=== PATIENT | male | born 1995 | race Caucasian/White ===

== ENCOUNTER 2018-02-27 23:27 | Emergency (ER) | payer OTHER ==
[2018-02-27] MEDS ORDERED: FAMOTIDINE 20 MG TABLET PO ONE (23:57)
[2018-02-27] MEDS ORDERED: DIPHENHYDRAMINE HCL 50 MG CAPSULE PO ONE (23:57)
--- NOTE | 2018-02-27 23:58 | ER Document Report ---
ED Allergic Reaction - General Mode of Arrival: Ambulatory Information source: Patient TRAVEL OUTSIDE OF THE [place] IN LAST 30 DAYS: No - General Chief Complaint: Allergic Reaction Stated Complaint: ALLERGIC REACTION Time Seen by Provider: 02/27/18 23:52 Notes: Patient is a 22 year old male presenting to the emergency department complaining of an allergic reaction. Patient states he was cutting the hair on his head, chest and back with new clippers when he became itchy on his neck, upper back and chest. He states he was not initially concerned due to normally being itchy after a haircut but states the itchiness became "unbearable". He states he also became red and developed hives on his back, chest, and neck. He states he is no longer as itchy as before but now describes his skin as burning. Patient denies any use of lotions or oils. (ELIESER GOODE) - Related Data Allergies/Adverse Reactions: No Known Allergies Allergy (Unverified 02/27/18 23:30) Past Medical History - General Information source: Patient - Social History Smoking Status: Never Smoker Cigarette use (# per day): No Chew tobacco use (# tins/day): No Smoking Education Provided: No Frequency of alcohol use: None Family History: Reviewed & Not Pertinent Review of Systems - Review of Systems Constitutional: No symptoms reported EENT: No symptoms reported Cardiovascular: No symptoms reported Respiratory: No symptoms reported Gastrointestinal: No symptoms reported Genitourinary: No symptoms reported Male Genitourinary: No symptoms reported Musculoskeletal: No symptoms reported Skin: See HPI Hematologic/Lymphatic: No symptoms reported Neurological/Psychological: No symptoms reported -: Yes All other systems reviewed and negative Physical Exam - Vital signs Vitals: Temp Pulse Resp BP Pulse Ox 98.0 F 74 16 137/77 H 98 02/27/18 23:33 02/27/18 23:33 02/27/18 23:33 02/27/18 23:33 02/27/18 23:33 - Notes Notes: GENERAL: Alert, interacts well. No acute distress. HEAD: Normocephalic, atraumatic. EYES: Pupils equal, round, and reactive to light. Extraocular movements intact. ENT: Oral mucosa moist, tongue midline. NECK: Full range of motion. Supple. Trachea midline. LUNGS: No respiratory distress. HEART: Regular rate and rhythm. No murmurs, gallops, or rubs. EXTREMITIES: Moves all 4 extremities spontaneously. NEUROLOGICAL: Alert and oriented x3. Normal speech. PSYCH: Normal affect, normal mood. SKIN: Warm, dry, normal turgor. Diffuse erythema across chest, posterior neck and upper back. Dermatographism present after running fingernail across the back. (ELIESER GOODE) Course - Re-evaluation Re-evalutation: 02/28/18 00:53 The dermatographic is some lines that were produced on the patient's back when I héctor my fingernail across the skin, have faded and are no longer visible. Patient states that the itching is much improved. There is still some itching but it is considerably better. (SHAQ SINGH) - Vital Signs Vital signs: Temp Pulse Resp BP Pulse Ox 98.0 F 68 16 130/76 H 99 02/28/18 01:14 02/28/18 01:14 02/28/18 01:14 02/28/18 01:14 02/28/18 01:14 Discharge - Discharge Clinical Impression: Dermatographic urticaria Condition: Stable Disposition: HOME, SELF-CARE Additional Instructions: Acute Allergic Reaction Your symptoms are due to an allergic reaction. Allergy can cause hives, swelling of the hands, feet, and face, hoarseness, and difficulty swallowing or breathing. It may be due to exposure to medication, animal dander, foods, infection, or insect bites. Medication is a common cause, even when prior use of this same medication caused no problems. Acute treatment may include adrenalin and antihistamines. Usually, the specific allergic agent can't be identified unless repeated episodes occur. Home treatment includes the following: (1) Stop any suspicious medications. This will be discussed with you. (2) Oral antihistamines for the next four to five days. Example, diphenhydramine (Benadryl) every four hours. (3) You may also use cimetidine (Tagamet), ranitidine (Zantac), or famotidine (Pepcid) every four hours if diphenhydramine is not controlling itching and hives. (4) Avoid aspirin until the hives completely disappear. (5) Avoid hot baths or showers until the hives are completely gone. Call the doctor if faintness, difficulty swallowing, tightness in the chest, or wheezing occurs. Take Tagamet, Zantac, or Pepcid every 4 hours for the next few days. Take Benadryl every 4 hours if the other medications are not controlling her symptoms. Try to avoid anything that would scratch or irritate your skin. Avoid hot showers for the next 1-2 days. Follow-up with your primary care provider if not improving. RETURN TO THE EMERGENCY ROOM IF ANY NEW OR WORSENING SYMPTOMS. Forms: Return to Work Referrals: JAZLYN GAUTAM, CHEF ASSISTANT-C [Primary Care Provider] - Follow up as needed Scribe Attestation: 02/28/18 00:26 I personally performed the services described in the documentation, reviewed and edited the documentation which was dictated to the scribe in my presence, and it accurately records my words and actions. (SHAQ SINGH) Scribe Documentation - Scribe Written by Daniellee:: Nereida De La Torre, 00:10 acting as scribe for :: Thanh
[2018-02-28 01:14] VITALS: BP 130/76
== END 2018-02-28 01:15 | disposition home or self-care (01) ==
LOC: ER 23:27
DX: T78.40XA Allergy, unspecified, initial encounter (principal); L50.3 Dermatographic urticaria; X58.XXXA Exposure to other specified factors, initial encounter
CPT/HCPCS: 99283